=== PATIENT | female | born 1990 | race Caucasian/White ===

== ENCOUNTER 2017-11-20 12:54 | Emergency (ER) | payer OTHER ==
[2017-11-20 13:06] VITALS: BP 136/68; PULSE 68; TEMP 98.6; BMI 35.3
--- NOTE | 2017-11-20 13:28 | PDOC ---
History of Present Illness - General Chief Complaint: Eye Problem Stated Complaint: RED IN EYE Time Seen by Provider: 11/20/17 13:18 History Source: Patient Exam Limitations: No Limitations - History of Present Illness Initial Comments: 11/20/17 13:28 Came for evaluation of redness to left eye and multiple areas 2 orbits since Monday. States was at a libertarian, was drinking "a little bit" tequila and dancing. Upon returning home became violently ill, with a few episodes of emesis. Woke up Monday morning with redness to left eye and multiple small areas of bruising around orbits. Patient states since that time has felt well but was concerned about the redness to her conjunctiva. No drainage, no fevers, no headache. No history of any medical problems. 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 Occurred: reports: yesterday, last week Severity: reports: mild, moderate Pain Location: reports: face Method of Injury: Yes: unknown Modifying Factors: improves with: None Loss of Consciousness: no loss of consciousness Associated Symptoms (Fall): denies symptoms Past History - Travel Traveled outside of the country in the last 30 days: No Close contact w/someone who was outside of country & ill: No - Past Medical History Allergies/Adverse Reactions: Allergies Allergy/AdvReac Type Severity Reaction Status Date / Time No Known Drug Allergies Allergy Verified 11/20/17 13:03 Home Medications: Ambulatory Orders NK [No Known Home Medication] 11/20/17 Anemia: No Asthma: No Cancer: No Cardiac Disorders: No CVA: No COPD: No CHF: No Dementia: No Diabetes: No GI Disorders: No Disorders: No HTN: No Hypercholesterolemia: No Liver Disease: No Seizures: No Thyroid Disease: No - Surgical History Abdominal Surgery: No Appendectomy: No Cardiac Surgery: No Cholecystectomy: No Lung Surgery: No Neurologic Surgery: No Orthopedic Surgery: No - Suicide/Smoking/Psychosocial Hx Smoking History: Never smoked Have you smoked in the past 12 months: No Hx Alcohol Use: No Drug/Substance Use Hx: No Substance Use Type: None Hx Substance Use Treatment: No Review of Systems - Review of Systems Able to Perform ROS?: Yes Is the patient limited [place] proficient: Yes Constitutional: Yes: Symptoms Reported, See HPI. No: Chills, Fever, Malaise HEENTM: Yes: Symptoms Reported, See HPI, Eye Pain, Blurred Vision. No: Double Vision Respiratory: Yes: See HPI. No: Symptoms reported ABD/GI: No: Symptoms Reported All Other Systems: Reviewed and Negative *Physical Exam - Vital Signs Last Vital Signs Temp Pulse Resp BP Pulse Ox 98.6 F 68 16 136/68 99 11/20/17 13:03 11/20/17 13:03 11/20/17 13:03 11/20/17 13:03 11/20/17 13:03 - Physical Exam General Appearance: Yes: Nourished, Appropriately Dressed, Mild Distress HEENT: positive: EOMI, SEDA, Normal ENT Inspection, TMs Normal, Pharynx Normal, Other (left conjunctival with approximately 50% subconjunctival hemorrhage on the lateral aspect. Visual acuity is normal limits, and has no drainage from eye. Is nonpainful. 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 No injury and no further treatment required *DC/Admit/Observation/Transfer Diagnosis at time of Disposition: Subconjunctival hemorrhage of left eye - Discharge Dispostion Disposition: HOME Condition at time of disposition: Stable Decision to Admit order: No - Referrals - Patient Instructions Printed Discharge Instructions: DI for Subconjunctival Hemorrhage Additional Instructions: All of the redness to your face are bruises from the episode of vomiting on Monday Do not need any medication or treatment as these bruises will fade probably within the week Print Language: SWISS - Post Discharge Activity Forms/Work/School Notes: Back to Work
== END 2017-11-20 13:39 | disposition home or self-care (01) ==
LOC: JERFT 12:54
DX: H11.32 Conjunctival hemorrhage, left eye (principal)
CPT/HCPCS: 99281-25

== ENCOUNTER 2021-02-17 19:28 | Emergency (ER) | payer OTHER ==
[2021-02-17 19:56] VITALS: BP 149/100; PULSE 91; TEMP 99.5; BMI 32.4
[2021-02-17] MEDS ORDERED: ACETAMINOPHEN 500 MG TABLET (FP) PO ONE (20:49)
[2021-02-17] MEDS ORDERED: ACETAMINOPHEN 500 MG TABLET (FP) ONE (21:14)
== END 2021-02-17 22:50 | disposition home or self-care (01) ==
LOC: JERFT 19:28 → JER 19:28 → JERFT 22:50
DX: U07.1 COVID-19 (principal)
CPT/HCPCS: 87804; 87807; 99283-25; C9803; U0003; U0005

== ENCOUNTER 2022-11-11 13:52 | Emergency (ER) | payer OTHER ==
[2022-11-11 13:58] VITALS: BP 152/74; PULSE 64; RESP 20; TEMP 97.5; BMI 34.5
[2022-11-11] MEDS ORDERED: ACETAMINOPHEN 500 MG TABLET (FP) PO ONE (14:30)
[2022-11-11] MEDS ORDERED: ACETAMINOPHEN 500 MG TABLET (FP) ONE (14:35)
[2022-11-11] MEDS ORDERED: KETOROLAC TROMETHAMINE 30 MG/1 ML VIAL IM ONE (15:34)
[2022-11-11] MEDS ORDERED: KETOROLAC TROMETHAMINE 30 MG/1 ML VIAL ONE (15:36)
== END 2022-11-11 16:38 | disposition home or self-care (01) ==
LOC: JERFT 13:52
PROC: 3E0233Z Introduction of Anti-inflammatory into Muscle, Percutaneous Approach (ICD-10-PCS; principal; 2022-11-11)
DX: S83.92XA Sprain of unspecified site of left knee, initial encounter (principal); M25.462 Effusion, left knee; X58.XXXA Exposure to other specified factors, initial encounter
CPT/HCPCS: 73562-TC-LT-FY; 84703; 99284-25

== ENCOUNTER 2023-03-06 09:23 | Emergency (ER) | payer OTHER ==
[2023-03-06 09:34] VITALS: RESP 18; TEMP 97.5
[2023-03-06 09:40] VITALS: BMI 37.5
[2023-03-06 10:08] LABS: URINE APPEARANCE CLEAR; URINE BILIRUBIN NEGATIVE (NEGATIVE); URINE COLOR YELLOW; URINE GLUCOSE (UA) NEGATIVE (NEGATIVE); URINE KETONE NEGATIVE (NEGATIVE); URINE LEUK ESTERASE NEGATIVE (NEGATIVE); URINE NITRITE NEGATIVE (NEGATIVE); URINE PROTEIN NEGATIVE (NEGATIVE)
[2023-03-06] MEDS ORDERED: DEXTROSE 5%-NORMAL SALINE 1,000 ML IV ONE (10:13)
[2023-03-06] MEDS ORDERED: SODIUM CHLORIDE 1,000 ML IV STA (10:47)
[2023-03-06 11:35] LABS: BASO % 1.2 % (0-2.0); EOS % 2.5 % (0-4.5); HEMATOCRIT 38.2 % (32.4-45.2); HEMOGLOBIN 12.6 GM/dL (10.7-15.3); LYMPH % 20.6 % (8-40); MCHC 33.1 g/dl (32.0-36.0); MEAN CELL VOLUME 87.6 fl (80-96); MEAN PLT VOLUME 8.4 fl (7.5-11.1); MONO % 5.2 % (3.8-10.2); NEUT % 70.5 % (42.8-82.8); PLATELET COUNT 231 10^3/uL (134-434); RBC 4.36 M/mm3 (3.60-5.2); RDW 13.3 % (11.6-15.6); WHITE BLOOD COUNT 9.4 K/mm3 (4.0-10.0)
[2023-03-06 11:53] LABS: POTASSIUM 4.3 mmol/L (3.5-5.1)
[2023-03-06 11:57] LABS: CALCIUM 8.7 mg/dL (8.5-10.1)
[2023-03-06 11:58] LABS: ALBUMIN 3.5 g/dl (3.4-5.0); BLOOD UREA NITROGEN 7.2 mg/dL (7-18); MAGNESIUM 2.1 mg/dL (1.8-2.4)
[2023-03-06 12:01] LABS: CREATININE 0.6 mg/dL (0.55-1.3)
[2023-03-06 12:03] LABS: BILIRUBIN,TOTAL 0.7 mg/dL (0.2-1); TOT PROT 6.8 g/dl (6.4-8.2)
[2023-03-06] MEDS ORDERED: PYRIDOXINE HCL (B-6) 50 MG TABLET (FP) PO SCH (13:30)
[2023-03-06 15:17] VITALS: BP 146/96; PULSE 69
[2023-03-07] MEDS ORDERED: PYRIDOXINE HCL 100 MG/1 ML VIAL IM ONE (10:09)
== END 2023-03-06 15:20 | disposition home or self-care (01) ==
LOC: JER 09:23 → JERFT 09:23 → JER 15:20
PROC: 3E0337Z Introduction of Electrolytic and Water Balance Substance into Peripheral Vein, Percutaneous Approach (ICD-10-PCS; principal; 2023-03-06)
DX: O21.9 Vomiting of pregnancy, unspecified (principal); O26.899 Other specified pregnancy related conditions, unspecified trimester; R35.0 Frequency of micturition; R10.30 Lower abdominal pain, unspecified; Z3A.00 Weeks of gestation of pregnancy not specified; Z20.822 Contact with and (suspected) exposure to COVID-19
CPT/HCPCS: 0241U-QW; 36415; 76817-TC; 80053; 81003; 83735; 84702; 84703; 85025; 87086; 87186; 87491; 87591; 87661; 99284-25

== ENCOUNTER 2023-05-15 11:17 | Emergency (ER) | payer OTHER ==
[2023-05-15 11:28] VITALS: BP 141/78; PULSE 68; RESP 18; TEMP 98.3; BMI 36.6
== END 2023-05-15 12:40 | disposition home or self-care (01) ==
LOC: JERFT 11:17
DX: M25.531 Pain in right wrist (principal); M65.4 Radial styloid tenosynovitis [de Quervain]
CPT/HCPCS: 99283-25

== ENCOUNTER 2023-10-30 09:46 | Emergency (ER) | payer OTHER ==
[2023-10-30 09:51] VITALS: TEMP 98.9; BMI 35.9
[2023-10-30] MEDS ORDERED: LIDOCAINE VISCOUS 2% ORAL/TOP 15 ML UNIT-DOSE CUP ONE (10:37)
[2023-10-30] MEDS ORDERED: MAG HYDROX/AL HYDROX/SIMETH 30 ML UNIT-DOSE CUP ONE (10:38)
[2023-10-30] MEDS: LIDOCAINE VISCOUS 2% ORAL/TOP 15 ML UNIT-DOSE CUP MM ONE (10:48)
[2023-10-30] MEDS: MAG HYDROX/AL HYDROX/SIMETH 30 ML UNIT-DOSE CUP PO ONE (10:48)
[2023-10-30] MEDS ORDERED: ONDANSETRON 4 MG/2 ML VIAL ONE (10:51)
[2023-10-30] MEDS: SODIUM CHLORIDE 0.9% 500 ML INFUS.BAG IV ONE (11:00)
[2023-10-30] MEDS: ONDANSETRON 4 MG/2 ML VIAL IVPUSH ONE (11:00)
[2023-10-30 11:11] LABS: HEMATOCRIT 38.6 % (32.4-45.2); LYMPH % 23.6 % (8-40); MCH 29.7 pg (25.7-33.7); MCHC 33.7 g/dl (32.0-36.0); MEAN CELL VOLUME 88.3 fl (80-96); MEAN PLT VOLUME 8.5 fl (7.5-11.1); MONO % 4.8 % (3.8-10.2); NEUT % 66.6 % (42.8-82.8); PLATELET COUNT 226 10^3/uL (134-434); RBC 4.37 M/mm3 (3.60-5.2); RDW 13.5 % (11.6-15.6); WHITE BLOOD COUNT 5.3 K/mm3 (4.0-10.0)
[2023-10-30 11:20] LABS: CHLORIDE 107 mmol/L (98-107); POTASSIUM 4.3 mmol/L (3.5-5.1); SODIUM 139 mmol/L (136-145)
[2023-10-30 11:23] LABS: ALBUMIN 3.8 g/dl (3.4-5.0); ANION GAP 7 mmol/L (4-13); BLOOD UREA NITROGEN 6.2 mg/dL (7-18); CALCIUM 8.9 mg/dL (8.5-10.1); CO2 24 mmol/L (21-32); GLUCOSE,RANDOM 114 mg/dL (74-106)
[2023-10-30 11:26] LABS: CREATININE 0.8 mg/dL (0.55-1.3); SGOT/AST 28 U/L (15-37); SGPT/ALT 24 U/L (13-61)
[2023-10-30 11:28] LABS: BILIRUBIN,TOTAL 1.6 mg/dL (0.2-1); TOT PROT 7.1 g/dl (6.4-8.2)
[2023-10-30 11:29] LABS: ALK PHOS 111 U/L (45-117)
[2023-10-30] MEDS ORDERED: ACETAMINOPHEN INJECTION 100 ML ONE (13:17)
[2023-10-30] MEDS: ACETAMINOPHEN 1000 MG/100 ML BAG IVPB ONE (13:27)
[2023-10-30 14:51] VITALS: BP 129/76; PULSE 52; RESP 14
== END 2023-10-30 14:51 | disposition home or self-care (01) ==
LOC: JER 09:46
PROC: 3E033NZ Introduction of Analgesics, Hypnotics, Sedatives into Peripheral Vein, Percutaneous Approach (ICD-10-PCS; principal; 2023-10-30)
PROC: 3E033GC Introduction of Other Therapeutic Substance into Peripheral Vein, Percutaneous Approach (ICD-10-PCS; 2023-10-30)
DX: K29.00 Acute gastritis without bleeding (principal); R10.13 Epigastric pain; R10.11 Right upper quadrant pain; R11.2 Nausea with vomiting, unspecified
CPT/HCPCS: 36415; 76705-TC; 80053; 83690; 84702; 85025; 96374; 96375; 99284-25; J0131